=== PATIENT | female | born 1945 | race Caucasian/White ===

== ENCOUNTER 2018-07-22 08:51 | Day surgery (SDC) | payer MEDICARE, MEDICAID ==
[~2018-07-22 08:51] MED LIST: AMIT-189 PO; ASPI-1265 PO; DILT180C66 PO; DIPH25TA62 PO; FLEC50TA10 PO; LANS30CA37 PO; THI100T PO
[2018-07-22] MEDS ORDERED: LIDOcaine 2% 5ml jelly ONE (09:59)
[2018-07-22] MEDS ORDERED: DOXY100C43 PO (10:05)
--- NOTE | 2018-07-22 14:36 | NUR ---
Patient ambulated independently from [facility] and was admitted to outpatient wound care for first time visit with Fer Montero MD. Dressing removed, wound cleansed and lidocaine applied per order. Patient assessed and medications and medical history. Dr. Montero at bedside accompanied by RN. Wound assessed, time out performed by MD/RN. Wound debrided as detailed in the physician progress/procedure note. Plan of care discussed with patient. Dressings placed per MD orders. Patient instructed on the signs and symptoms of infection and to call the [facility]ound [facility] if any occur or to go to the ED if we are closed: Increased pain in wound Increase in drainage from the wound Redness in the skin surrounding the wound Bleeding from the wound Temperature of 101 or greater Patient instructed that the weight of their body puts a large amount of pressure on their wounds. This pressure keeps the new tissue from growing and inhibits new blood vessels from forming. Explained that, if they continue to bear weight on a body part that has a wound, the time it takes to heal the wound increases, the wound may get worse or the wound may not heal at all. Patient verbalized understanding of all discharge instructions and plan of care and ambulated independently out to [facility] in stable condition with no sign or symptom of distress at time of discharge. Addendum: 07/22/18 at 1456 by Angelica Verdin RN Amended: Links added.
== END 2018-07-22 10:53 | disposition home or self-care (01) ==
LOC: WOUND CARE 08:51
PROVIDERS: ATTEND Surgery
DX: L98.412 Non-pressure chronic ulcer of buttock with fat layer exposed (principal)
CPT/HCPCS: 97597; A6021; A6212

== ENCOUNTER 2019-03-12 12:32 | Outpatient (CLI) | payer MEDICARE, MEDICAID ==
[~2019-03-12 12:32] MED LIST changes: -ASPI-1265 PO; +DOXY100C43 PO; -LANS30CA37 PO
== END 2019-03-12 23:59 | disposition home or self-care (01) ==
LOC: CARD DIAG 12:32
PROVIDERS: ATTEND Internal Medicine Cardiovascular Disease
DX: I08.3 Combined rheumatic disorders of mitral, aortic and tricuspid valves (principal); E11.9 Type 2 diabetes mellitus without complications; Z87.891 Personal history of nicotine dependence
CPT/HCPCS: 93306

== ENCOUNTER 2019-06-27 12:44 | Emergency (ER) | payer MEDICARE, MEDICAID ==
[~2019-06-27] VITALS: Ht 165.1 cm; Wt 71.0 kg
[2019-06-27 12:54] VITALS: BP 130/82
--- NOTE | 2019-06-27 13:29 | NUR ---
relieving RN for break, pt is being evaluated by Dr Palacios
[2019-06-27 13:56] LABS: CLARITY,URINE CLOUDY (Clear); COLOR,URINE YELLOW (Yellow); GLUCOSE, URINE NEGATIVE (Neg); KETONES,URINE NEGATIVE (Neg); LEUKOCYTE ESTERASE ,URINE LARGE (Neg); NITRITES, URINE NEGATIVE (Neg); OCCULT BLOOD,URINE NEGATIVE (Neg); PROTEIN,URINE NEGATIVE (Neg); UROBILINOGEN,URINE 0.2 E.U/dL (0.2-1.0)
[2019-06-27 13:58] LABS: UA COLLECTION TYPE CLN CATCH MIDSTREAM
[2019-06-27 14:03] LABS: BACTERIA,URINE 2+ /HPF (Neg); MUCUS STRANDS NONE SEEN /LPF (Neg); RBC,URINE NONE SEEN /HPF (0-2); SQUAMOUS EPITHELIAL CELL,UR MANY /LPF (FEW); TRANSITIONAL EPI CELLS,URINE MODERATE /HPF; WBC CLUMPS,URINE MODERATE /HPF (NEGATIVE); WBC,URINE TNTC /HPF (0-4)
[2019-06-27] MEDS ORDERED: CEPH500C5 PO (14:06)
== END 2019-06-27 14:16 | disposition home or self-care (01) ==
LOC: ER 12:45
DX: S16.1XXA Strain of muscle, fascia and tendon at neck level, initial encounter (principal); S80.12XA Contusion of left lower leg, initial encounter; N39.0 Urinary tract infection, site not specified; E11.9 Type 2 diabetes mellitus without complications; Z90.49 Acquired absence of other specified parts of digestive tract; Z98.890 Other specified postprocedural states; Z56.0 Unemployment, unspecified; Z88.8 Allergy status to other drugs, medicaments and biological substances; Z88.1 Allergy status to other antibiotic agents; Z79.899 Other long term (current) drug therapy; V89.2XXA Person injured in unspecified motor-vehicle accident, traffic, initial encounter; Y93.89 Activity, other specified; Y92.488 Other paved roadways as the place of occurrence of the external cause; Y99.8 Other external cause status
CPT/HCPCS: 71045; 72040; 81001; 99284

== ENCOUNTER 2021-12-08 13:15 | Outpatient (CLI) | payer MEDICARE, MEDICAID ==
[~2021-12-08 13:15] MED LIST changes: +AMOX-580 PO; +DILT-35 PO; -DILT180C66 PO; -DIPH25TA62 PO; -DOXY100C43 PO; +FERR325T29 PO; +FLEC100T35 PO; -FLEC50TA10 PO; +FLUT16SP26 BOTHNARES; +RALO60TA13 PO; -THI100T PO
== END 2021-12-08 23:59 | disposition home or self-care (01) ==
LOC: CARD DIAG 13:15
PROVIDERS: ATTEND Internal Medicine Cardiovascular Disease
DX: I08.8 Other rheumatic multiple valve diseases (principal)
CPT/HCPCS: 93306

== ENCOUNTER 2022-06-07 12:39 | Outpatient (CLI) | payer MEDICARE, MEDICAID ==
[~2022-06-07 12:39] MED LIST changes: -AMIT-189 PO; +AMIT-286 PO; +barium sulfate 450ml oral suspension ONE
== END 2022-06-07 23:59 | disposition home or self-care (01) ==
LOC: RAD 12:39
PROVIDERS: ATTEND Physician Assistant
DX: K21.9 Gastro-esophageal reflux disease without esophagitis (principal); R13.14 Dysphagia, pharyngoesophageal phase
CPT/HCPCS: 74230

== ENCOUNTER 2023-01-02 12:38 | Outpatient (CLI) | payer MEDICARE, MEDICAID ==
[~2023-01-02 12:38] MED LIST changes: -barium sulfate 450ml oral suspension ONE
== END 2023-01-02 23:59 | disposition home or self-care (01) ==
LOC: CARD DIAG 12:38
PROVIDERS: ATTEND Internal Medicine Cardiovascular Disease
DX: I08.8 Other rheumatic multiple valve diseases (principal)
CPT/HCPCS: 93306

== ENCOUNTER 2024-05-25 09:30 | Inpatient (IN) | payer MEDICARE, MEDICAID ==
[~2024-05-25] VITALS: Ht 160 cm; Wt 61.4 kg
[~2024-05-25 09:30] MED LIST changes: -AMIT-286 PO; +AMIT-311 PO
[2024-05-25 10:36] LABS: BASOPHILS % (AUTO) 0.3 % (0-1); EOSINOPHILS # (AUTO) 0.2 X10'3 (0-0.9); EOSINOPHILS % (AUTO) 2.2 % (0-6); HEMOGLOBIN 11.8 g/dl (12.0-16.0); LYMPHOCYTES # (AUTO) 1.4 X10'3 (1.1-4.8); LYMPHOCYTES % (AUTO) 17.6 % (21-51); MEAN CORPUSCULAR HEMOGLOBIN 32.7 PG (27.0-31.0); MEAN CORPUSCULAR HGB CONC 33.6 g/dL (33.0-36.5); MEAN CORPUSCULAR VOLUME 97.1 FL (78-98); MEAN PLATELET VOLUME 6.8 FL (7.4-10.4); MONOCYTES # (AUTO) 0.8 X10'3 (0-0.9); MONOCYTES % (AUTO) 9.4 % (2-12); NEUTROPHILS # (AUTO) 5.8 X10'3 (1.8-7.7); NEUTROPHILS % (AUTO) 70.5 % (42-75); PLATELET COUNT 277 X10'3 (140-440); WHITE BLOOD COUNT 8.2 X10'3 (4.5-11.0)
[2024-05-25] MEDS: CefTRIAXone/D5W-Rocephin 1gm 50 ML IV ONE (11:01)
[2024-05-25 11:05] LABS: ALANINE AMINOTRANSFERASE 18 U/L (12-78); ALBUMIN 2.7 G/DL (3.4-5.0); ALBUMIN/GLOBULIN RATIO 0.7 (1.1-1.5); ALKALINE PHOSPHATASE 61 IU/L (46-116); ANION GAP 4 (8-16); ASPARTATE AMINO TRANSFERASE 21 U/L (10-37); BILIRUBIN,TOTAL 0.4 MG/DL (0.1-1.0); BLOOD UREA NITROGEN 10 MG/DL (7-18); BUN/CREATININE RATIO 15.2 (10.0-20.0); CALCIUM 8.5 MG/DL (8.5-10.1); CHLORIDE 98 MMOL/L (99-107); CREATININE 0.66 MG/DL (0.40-0.90); GLUCOSE 82 MG/DL (70-104); POTASSIUM 3.4 MMOL/L (3.5-5.1); SODIUM 132 MMOL/L (135-145); TOTAL PROTEIN 6.6 G/DL (6.4-8.2); eGFR 86 ML/MIN
[2024-05-25 11:08] LABS: PRO BRAIN NATRIURETIC PEPTIDE 366 PG/ML (0-450)
[2024-05-25] MEDS ORDERED: potassium Cl 20 mEq SR tablet PO PRN (11:45)
[2024-05-25] MEDS ORDERED: magnesium sulf-water 4G/100mL 100 ML IV PRN (11:45)
[2024-05-25] MEDS ORDERED: acetaminophen 325mg tablet PO PRN (11:45)
[2024-05-25] MEDS ORDERED: magnesium Cl slow-release 64mg tablet PO PRN (11:45)
[2024-05-25] MEDS ORDERED: potassium Cl 40MEQ/1/2NS 520ml 520 ML IV PRN (11:45)
[2024-05-25] MEDS ORDERED: magnesium hydroxide 30ml (MOM) UD suspension PO PRN (11:45)
[2024-05-25] MEDS ORDERED: ondansetron/PF 4mg/2ml inj IV PRN (11:45)
[2024-05-25] MEDS ORDERED: mag hydrox/Alum hydrox/simeth 30ml oral suspension PO PRN (11:45)
[2024-05-25] MEDS ORDERED: normal saline 1000ml 1,000 ML IV SCH (11:45)
[2024-05-25] MEDS ORDERED: magnesium sulf-water 2g/50mL 50 ML IV PRN (11:45)
[2024-05-25] MEDS ORDERED: hydrALAZINE 20mg/ml inj. IV PRN (11:50)
[2024-05-25] MEDS: piperacillin/tazo 3.375gm/50ml 50 ML IV SCH ×2 (12:32→19:54)
[2024-05-25] MEDS: K and/or MAG REPLACEMENT MC SCH (12:34)
[2024-05-25] MEDS: ipratropium/albuterol 3ml nebule NEB SCH (15:00)
[2024-05-25] MEDS: psyllium seed 5.8 gm packet (sugar-free) PO ONE (17:50)
[2024-05-25] MEDS: lactose-reduced food (Ensure Enlive) - 237ml bottle PO SCH (18:00)
[2024-05-25] MEDS ORDERED: ipratropium/albuterol 3ml nebule NEB SCH (19:00)
[2024-05-25 19:05] VITALS: PULSE 77; RESP 16; O2SAT 99
[2024-05-25] MEDS ORDERED: NINT150C PO (19:05)
[2024-05-25 19:13] VITALS: PULSE 76; RESP 16
[2024-05-25] MEDS: docusate sod 100mg capsule PO SCH (19:34)
[2024-05-25] MEDS: flecainide 50mg tablet PO SCH (19:43)
[2024-05-25] MEDS: heparin, porcine 5000 units/ml vial SQ SCH (19:43)
[2024-05-25] MEDS: ferrous sulfate 325mg tablet PO SCH (20:00)
[2024-05-25] MEDS: NINTEDANIB ESYLATE 150 MG PO SCH (20:00)
[2024-05-25] MEDS: budesonide 0.5mg/2ml UD nebule IH SCH (22:58)
[2024-05-25 23:01] VITALS: PULSE 76; RESP 16; O2SAT 100
[2024-05-25 23:09] VITALS: PULSE 79; RESP 16
[2024-05-26] VITALS (17 sets, daily range): BP systolic 129–143; BP diastolic 72–73; PULSE 74–106; RESP 13–19; TEMP 96.9–98; O2SAT 87–100
[2024-05-26] MEDS: methylPREDNISolone sod succ 125mg/2ml vial IV SCH (00:13)
[2024-05-26] MEDS: potassium Cl 20 mEq SR tablet PO PRN (00:13)
[2024-05-26 03:31] LABS: BASOPHILS % (AUTO) 0.2 % (0-1); EOSINOPHILS % (AUTO) 0.1 % (0-6); HEMATOCRIT 35.8 % (35.0-45.0); HEMOGLOBIN 12.2 g/dl (12.0-16.0); LYMPHOCYTES # (AUTO) 0.7 X10'3 (1.1-4.8); LYMPHOCYTES % (AUTO) 8.3 % (21-51); MEAN CORPUSCULAR HEMOGLOBIN 32.9 PG (27.0-31.0); MEAN CORPUSCULAR HGB CONC 34.1 g/dL (33.0-36.5); MEAN CORPUSCULAR VOLUME 96.3 FL (78-98); MEAN PLATELET VOLUME 6.9 FL (7.4-10.4); MONOCYTES # (AUTO) 0.2 X10'3 (0-0.9); MONOCYTES % (AUTO) 2.4 % (2-12); NEUTROPHILS # (AUTO) 7.1 X10'3 (1.8-7.7); PLATELET COUNT 265 X10'3 (140-440); RED BLOOD COUNT 3.72 X10'6 (4.20-5.60); RED CELL DISTRIBUTION WIDTH 13.6 % (11.5-14.5)
[2024-05-26 03:55] LABS: ALANINE AMINOTRANSFERASE 19 U/L (12-78); ALBUMIN 2.8 G/DL (3.4-5.0); ALBUMIN/GLOBULIN RATIO 0.7 (1.1-1.5); ALKALINE PHOSPHATASE 59 IU/L (46-116); ANION GAP 6 (8-16); ASPARTATE AMINO TRANSFERASE 20 U/L (10-37); BILIRUBIN,TOTAL 0.3 MG/DL (0.1-1.0); BLOOD UREA NITROGEN 15 MG/DL (7-18); BUN/CREATININE RATIO 21.7 (10.0-20.0); CALCIUM 8.7 MG/DL (8.5-10.1); CHLORIDE 99 MMOL/L (99-107); CREATININE 0.69 MG/DL (0.40-0.90); GLUCOSE 123 MG/DL (70-104); POTASSIUM 4.1 MMOL/L (3.5-5.1); SODIUM 133 MMOL/L (135-145); TOTAL CARBON DIOXIDE 28.3 MMOL/L (24-32); TOTAL PROTEIN 6.9 G/DL (6.4-8.2); eGFR 82 ML/MIN
[2024-05-26] MEDS: amitriptyline 50mg tablet PO SCH ×2 (08:00→21:50)
[2024-05-26] MEDS: diltiazem CD 120mg capsule (once-daily) PO SCH (10:03)
[2024-05-26] MEDS ORDERED: OMEP20CA16 PO (12:01)
[2024-05-26] MEDS ORDERED: IMMU4VIA SQ (12:01)
[2024-05-26] MEDS ORDERED: OMEP40CA21 PO (12:01)
[2024-05-26] MEDS ORDERED: DILT60TA35 PO (20:04)
[2024-05-26] MEDS: diltiazem SR 60mg capsule (twice daily) PO ONE (21:50)
[2024-05-27] VITALS (8 sets, daily range): BP systolic 126; BP diastolic 75; PULSE 73–98; RESP 16–18; TEMP 97.4; O2SAT 91–99
[2024-05-27 06:45] LABS: BASOPHILS % (AUTO) 0.1 % (0-1); EOSINOPHILS % (AUTO) 0 % (0-6); HEMATOCRIT 34.6 % (35.0-45.0); HEMOGLOBIN 11.7 g/dl (12.0-16.0); LYMPHOCYTES # (AUTO) 0.2 X10'3 (1.1-4.8); LYMPHOCYTES % (AUTO) 2.8 % (21-51); MEAN CORPUSCULAR HGB CONC 33.9 g/dL (33.0-36.5); MEAN CORPUSCULAR VOLUME 97.3 FL (78-98); MEAN PLATELET VOLUME 6.9 FL (7.4-10.4); MONOCYTES # (AUTO) 0.2 X10'3 (0-0.9); MONOCYTES % (AUTO) 2.1 % (2-12); NEUTROPHILS # (AUTO) 7.7 X10'3 (1.8-7.7); PLATELET COUNT 261 X10'3 (140-440); RED BLOOD COUNT 3.56 X10'6 (4.20-5.60); WHITE BLOOD COUNT 8.1 X10'3 (4.5-11.0)
[2024-05-27 07:02] LABS: ALANINE AMINOTRANSFERASE 25 U/L (12-78); ALBUMIN 2.7 G/DL (3.4-5.0); ALBUMIN/GLOBULIN RATIO 0.7 (1.1-1.5); ALKALINE PHOSPHATASE 59 IU/L (46-116); ANION GAP 7 (8-16); ASPARTATE AMINO TRANSFERASE 22 U/L (10-37); BILIRUBIN,TOTAL 0.2 MG/DL (0.1-1.0); BLOOD UREA NITROGEN 13 MG/DL (7-18); BUN/CREATININE RATIO 16.3 (10.0-20.0); CALCIUM 8.8 MG/DL (8.5-10.1); CHLORIDE 97 MMOL/L (99-107); GLUCOSE 175 MG/DL (70-104); POTASSIUM 3.9 MMOL/L (3.5-5.1); SODIUM 131 MMOL/L (135-145); TOTAL CARBON DIOXIDE 26.7 MMOL/L (24-32); TOTAL PROTEIN 6.7 G/DL (6.4-8.2); eCRCL 47 ML/MIN; eGFR 69 ML/MIN
[2024-05-27] MEDS: diltiazem SR 60mg capsule (twice daily) PO SCH (08:05)
[2024-05-27] MEDS ORDERED: PRED10TA PO (11:03)
[2024-05-27] MEDS ORDERED: AMOX-580 PO (11:09)
[2024-05-27] MEDS ORDERED: LACT1CAP26 PO (11:11)
== END 2024-05-27 13:30 | disposition home or self-care (01) | DRG 177 ==
LOC: ER 09:31 → ED HOLD 11:44 → ORTHO 4S 05-26 12:51
PROVIDERS: ADMIT Family Medicine; ATTEND Family Medicine
DX: J69.0 Pneumonitis due to inhalation of food and vomit (principal); J96.01 Acute respiratory failure with hypoxia; E87.1 Hypo-osmolality and hyponatremia; I47.19 Other supraventricular tachycardia; D84.89 Other immunodeficiencies; E44.0 Moderate protein-calorie malnutrition; Z20.822 Contact with and (suspected) exposure to COVID-19; E11.9 Type 2 diabetes mellitus without complications; I50.9 Heart failure, unspecified; L89.152 Pressure ulcer of sacral region, stage 2; J84.112 Idiopathic pulmonary fibrosis; E87.6 Hypokalemia; C44.82 Squamous cell carcinoma of overlapping sites of skin; D69.6 Thrombocytopenia, unspecified; K21.9 Gastro-esophageal reflux disease without esophagitis; K44.9 Diaphragmatic hernia without obstruction or gangrene; Z88.1 Allergy status to other antibiotic agents; Z79.899 Other long term (current) drug therapy; Z88.8 Allergy status to other drugs, medicaments and biological substances; Z90.49 Acquired absence of other specified parts of digestive tract; Z90.710 Acquired absence of both cervix and uterus; Z68.24 Body mass index [BMI] 24.0-24.9, adult
CPT/HCPCS: 36415; 70486; 71045; 80053; 83880; 84484; 85025; 87081; 87502; 87503; 87811; 93005; 93306; 94640; 94760; 99285; A4615; A6213; A6250; A6449; G0378; J0696; J2543; J2919

== ENCOUNTER 2024-06-03 20:49 | Emergency (ER) | payer MEDICARE, MEDICAID ==
[~2024-06-03] VITALS: Ht 162.6 cm; Wt 61.4 kg
[~2024-06-03 20:49] MED LIST changes: -AMOX-580 PO; -DILT-35 PO; +DILT60TA35 PO; +IMMU4VIA SQ; +LACT1CAP26 PO; +NINT150C PO; +OMEP20CA16 PO; +PRED10TA PO
[2024-06-03 21:10] VITALS: BP 161/95
[2024-06-03 21:39] LABS: BILIRUBIN,URINE NEGATIVE (Neg); CLARITY,URINE SLIGHTLY CLOUDY (Clear); COLOR,URINE YELLOW (Yellow); GLUCOSE, URINE NEGATIVE (Neg); KETONES,URINE NEGATIVE (Neg); LEUKOCYTE ESTERASE ,URINE NEGATIVE (Neg); NITRITES, URINE NEGATIVE (Neg); OCCULT BLOOD,URINE MODERATE (Neg); PH,URINE 6.5 (4.8-8.0); PROTEIN,URINE NEGATIVE (Neg); UROBILINOGEN,URINE 0.2 E.U/dL (0.2-1.0)
[2024-06-03 21:45] LABS: UA COLLECTION TYPE CLN CATCH MIDSTREAM
[2024-06-03 21:46] LABS: BACTERIA,URINE FEW /HPF (Neg); SQUAMOUS EPITHELIAL CELL,UR MODERATE /LPF (FEW); WBC,URINE 0-4 /HPF (0-4)
[2024-06-03 21:56] LABS: BASOPHILS % (AUTO) 0.2 % (0-1); EOSINOPHILS % (AUTO) 0.3 % (0-6); HEMATOCRIT 35.8 % (35.0-45.0); LYMPHOCYTES # (AUTO) 0.8 X10'3 (1.1-4.8); LYMPHOCYTES % (AUTO) 10.4 % (21-51); MEAN CORPUSCULAR HEMOGLOBIN 32.5 PG (27.0-31.0); MEAN CORPUSCULAR HGB CONC 33.5 g/dL (33.0-36.5); MEAN CORPUSCULAR VOLUME 97.2 FL (78-98); MEAN PLATELET VOLUME 6.8 FL (7.4-10.4); MONOCYTES # (AUTO) 0.5 X10'3 (0-0.9); MONOCYTES % (AUTO) 6.9 % (2-12); NEUTROPHILS # (AUTO) 6.2 X10'3 (1.8-7.7); NEUTROPHILS % (AUTO) 82.2 % (42-75); PLATELET COUNT 253 X10'3 (140-440); RED BLOOD COUNT 3.68 X10'6 (4.20-5.60); WHITE BLOOD COUNT 7.5 X10'3 (4.5-11.0)
[2024-06-03 22:09] LABS: ALBUMIN 2.9 G/DL (3.4-5.0); ANION GAP 6 (8-16); BLOOD UREA NITROGEN 15 MG/DL (7-18); BUN/CREATININE RATIO 19.7 (10.0-20.0); CALCIUM 8.4 MG/DL (8.5-10.1); CHLORIDE 95 MMOL/L (99-107); CREATININE 0.76 MG/DL (0.40-0.90); GLUCOSE 104 MG/DL (70-104); POTASSIUM 3.7 MMOL/L (3.5-5.1); SODIUM 129 MMOL/L (135-145); TOTAL CARBON DIOXIDE 28.1 MMOL/L (24-32); eCRCL 52 ML/MIN; eGFR 73 ML/MIN
[2024-06-03 22:59] VITALS: PULSE 82; RESP 14; TEMP 97.6; O2SAT 96
== END 2024-06-03 23:13 | disposition home or self-care (01) ==
LOC: ER 20:49
DX: E87.1 Hypo-osmolality and hyponatremia (principal); E11.9 Type 2 diabetes mellitus without complications; Z88.1 Allergy status to other antibiotic agents; Z88.8 Allergy status to other drugs, medicaments and biological substances; Z90.49 Acquired absence of other specified parts of digestive tract; Z98.890 Other specified postprocedural states
CPT/HCPCS: 36415; 71045; 80048; 81001; 85025; 93005; 99285